=== PATIENT | male | born 1940 | race Caucasian/White ===

== ENCOUNTER 2017-04-09 13:07 | Emergency (ER) | payer OTHER ==
[~2017-04-09] VITALS: Ht 152.4 cm; Wt 66.7 kg
[~2017-04-09 13:07] MED LIST: CARVEDILOL12.5 MG PO; EXFORGE 5 MG-161 TAB PO; FLOMAX0.4 MG PO; PRILOSEC40 MG PO
[2017-04-09 13:13] VITALS: BP 187/77
[2017-04-09] MEDS ORDERED: FLOMAX0.4 MG PO (13:23)
[2017-04-09] MEDS ORDERED: GOOD SENSE OMEP20 MG PO (13:23)
[2017-04-09] MEDS ORDERED: ASPIRIN81 M1 PO (13:23)
[2017-04-09] MEDS ORDERED: CIPRO250 MG PO (13:23)
[2017-04-09] MEDS ORDERED: VITAMIN D1000 IU PO (13:23)
[2017-04-09] MEDS ORDERED: PHENAZOPYRIDIN200 M3 PO (13:23)
[2017-04-09] MEDS ORDERED: NORVASC10 MG PO (13:23)
[2017-04-09] MEDS ORDERED: COREG12.5 MG PO (13:23)
[2017-04-09] MEDS ORDERED: LOSARTAN POTASS50 MG PO (13:23)
--- NOTE | 2017-04-09 13:55 | NUR ---
77/M BIB SELF C/O PAINFUL URINATION, RETENTION X 6 DAYS; UROLOGIST DR. JESSICA MOORE PMD DR. LANG; HX PROSTATE. DENIES N/V/D; SKIN IS PINK/WARM/DRY; AAOX4 WITH EVEN AND STEADY GAIT; LUNGS CLEAR BL; HR EVEN AND REGULAR; PT DENIES ANY FEVER, CP, SOB, OR COUGH AT THIS TIME; PATIENT STATES PAIN OF 10/10 AT THIS TIME; VSS; PATIENT POSITIONED FOR COMFORT; HOB ELEVATED; BEDRAILS UP X2; BED DOWN. ER MD MADE AWARE OF PT STATUS.
[2017-04-09 15:37] VITALS: BP 141/71
--- NOTE | 2017-04-09 15:37 | NUR ---
Patient discharged with v/s stable. Written and verbal after care instructions given and explained. Patient alert, oriented and verbalized understanding of instructions. Ambulatory with steady gait. All questions addressed prior to discharge. ID band removed. Patient advised to follow up with PMD. Rx of TYLENOL W/ CODEINE NO3 & PHENAZOPYRIDINE given. Patient educated on indication of medication including possible reaction and side effects. Opportunity to ask questions provided and answered.
== END 2017-04-09 15:37 | disposition home or self-care (01) ==
LOC: MED 13:07
DX: R30.0 Dysuria (principal); R10.30 Lower abdominal pain, unspecified; I10 Essential (primary) hypertension

== ENCOUNTER 2024-06-21 16:54 | Emergency (ER) | payer OTHER ==
[~2024-06-21] VITALS: Ht 160 cm; Wt 71.4 kg
[~2024-06-21 16:54] MED LIST changes: +AMLO10TA PO; +ASPI-1822 PO; +CARV12.5 PO; -CARVEDILOL12.5 MG PO; +CHOL100084 PO; +CIPR250T6 PO; -EXFORGE 5 MG-161 TAB PO; -FLOMAX0.4 MG PO; +LOSA50TA66 PO; +OMEP-278 PO; -PRILOSEC40 MG PO; +TAMS0.4C96 PO; +[UNRECOGNIZED DRUG - CODE] PO
[2024-06-21 17:08] VITALS: BP 160/68; PULSE 88; RESP 18; TEMP 99.7; O2SAT 95
[2024-06-21 17:50] LABS: FLU A ANTIGEN negative (NEGATIVE); FLU B ANTIGEN NEGATIVE (NEGATIVE)
[2024-06-21] MEDS ORDERED: IBUP-2213 PO (18:29)
[2024-06-21 18:40] VITALS: BP 149/59; PULSE 77; RESP 18; TEMP 37.61412; O2SAT 95
== END 2024-06-21 18:40 | disposition home or self-care (01) ==
LOC: MED 16:54
DX: R50.9 Fever, unspecified (principal); M79.18 Myalgia, other site; Z20.822 Contact with and (suspected) exposure to COVID-19; I10 Essential (primary) hypertension; Z79.899 Other long term (current) drug therapy; Z79.82 Long term (current) use of aspirin
CPT/HCPCS: 71045; 99284